=== PATIENT | female | born 1955 | race Caucasian/White ===

== ENCOUNTER 2019-03-19 09:10 | Day surgery (SDC) | payer OTHER ==
[~2019-03-19 09:10] MED LIST: LACTATED RINGERS 1,000 ML IV.SOLN IV ONE; LIDOCAINE HCL 2% PF 100MG/5ML VIAL IJ ONE; PROPOFOL 200 MG/20 ML VIAL IV ONE
--- NOTE | 2019-03-23 11:40 | GI Report ---
DATE OF PROCEDURE: 03/19/2019 REFERRING PHYSICIAN: Self-referred. PROCEDURE PERFORMED: Colonoscopy. SURGEON: Nancie Llamas M.D., EligioP. INDICATION FOR PROCEDURE: 64-year-old coming in for screening. This is her first colonoscopy. She denies changes of bowel habits or bleeding. She is not aware of any family history of colorectal cancer. PROCEDURE MEDICATION: Propofol, as per Anesthesia. DESCRIPTION OF PROCEDURE: An Olympus video colonoscope was advanced to the rectum. A few small diverticula in the sigmoid. The colonoscope was advanced all the way to the cecum. The appendiceal orifice and terminal ileum are normal. On slow withdrawal in the cecum, ascending colon, transverse colon, no obvious intraluminal lesions noted. Descending colon and sigmoid: Some redundancy. A few small diverticula. No obvious intraluminal lesions noted. Retroflexion in the rectum was normal. The patient tolerated the procedure well. FINDINGS: Normal colonoscopy, slightly redundant colon. RECOMMENDATIONS: 1. High fiber diet. 2. Consider relook at her colon in 10 years, sooner if clinically indicated. NANCIE LLAMAS M.D., F.A.C.P. JAMILA/francine R: 03/23/19 Job#: [id number] Cc: Dr. Hern[facility]
== END 2019-03-19 11:27 | disposition home or self-care (01) ==
LOC: OPSURG 09:10
PROVIDERS: ATTEND Internal Medicine Gastroenterology
DX: Z12.11 Encounter for screening for malignant neoplasm of colon (principal)
CPT/HCPCS: 45378; J2001; J2704; J7120